=== PATIENT | female | born 1970 | race Caucasian/White ===

== ENCOUNTER 2021-01-12 09:43 | Outpatient (CLI) | payer MEDICARE | END 2021-01-12 09:44 | disposition home or self-care (01) | LOC: CSHMAMMO 09:43 | PROVIDERS: ATTEND Family Medicine | DX: Z12.31 Encounter for screening mammogram for malignant neoplasm of breast (principal); Z98.82 Breast implant status | CPT/HCPCS: 77063; 77067 ==

== ENCOUNTER 2022-05-21 09:18 | Outpatient (CLI) | payer MEDICARE | END 2022-05-21 09:19 | disposition home or self-care (01) | LOC: CSHMAMMO 09:18 | PROVIDERS: ATTEND Family Medicine | DX: Z12.31 Encounter for screening mammogram for malignant neoplasm of breast (principal) | CPT/HCPCS: 77063; 77067 ==